=== PATIENT | male | born 1995 | race Hispanic/Latino ===

== ENCOUNTER 2018-03-13 01:15 | Emergency (ER) | payer SELFPAY ==
[2018-03-13 01:20] VITALS: BP 135/77; PULSE 122; RESP 16; TEMP 36.7; O2SAT 96; BMI 25.4
--- NOTE | 2018-03-13 01:23 | RAD_ITS ---
STUDY: X-RAY - LEFT RADIUS AND ULNA REASON FOR EXAM: Male, 22 years old. Status post fall into a glass picture. Laceration to the medial aspect of the arm. EtOH. TECHNIQUE: 3 view(s) of the forearm. COMPARISON: None. FINDINGS: There is soft tissue emphysema, consistent with skin wound. As seen on lateral views, there is a 1.5 mm triangular calcification projecting posterior to the proximal shaft of the ulna. As seen on AP view, there are 2 mm, 1 mm, and 4.5 mm radiodensities overlying the forearm medial to the proximal ulna. Each of these might represent a foreign body. Normal visualized radius. Normal visualized ulna. RAD/Forearm 2 Views IMPRESSION: No demonstrated fracture, dislocation, or destructive osseous lesion. Tentative identification of 2 mm, 1 mm, and 4.5 mm faintly radiodense foreign bodies adjacent to the proximal ulnar shaft. Electronically Signed: Terell Arias MD at 2:23 EST , Service support ,
[2018-03-13 01:51] LABS: Hematocrit 45.2 % (40-54); Hemoglobin 15.8 g/dl (13.0-16.5); Mean Corpuscular Hgb 29.4 pg (27.0-32.0); Mean Corpuscular Volume 84.2 fL (80-94); Mean Platelet Vol. 9.7 fl (6.2-12.0); Platelet Count 245 K/mm3 (150-450); RBC Distribution Width SD 36.7 fl (35.1-43.9); Red Blood Count 5.37 M/mm3 (4.6-6.2); White Blood Count 6.2 K/mm3 (4.4-11.0)
[2018-03-13 01:56] LABS: Scan Indicated on CBC? Y/N NO
[2018-03-13] MEDS: Cefazolin 1 GM/50 ML BAG IV (02:06)
[2018-03-13 02:12] LABS: Anion Gap 13 (5-15); BUN 15 mg/dL (7-18); BUN/Creat Ratio 13.8 RATIO (10-20); Calcium,Total 8.2 mg/dL (8.5-10.1); Chloride 108 mmol/L (98-107); Creatinine, Serum 1.09 mg/dL (0.70-1.30); EST Glomerular Filtration Rate 88 mL/min (>60); Est Glom Filt Rate - Afr Amer 106 mL/min (>60); Glucose 109 mg/dL (74-106); Potassium 3.9 mmol/L (3.5-5.1); Sodium Level 142 mmol/L (136-145)
--- NOTE | 2018-03-13 03:30 | ED.DCSUM_ITS ---
History of Present Illness Chief Complaint: Laceration Informant: Patient, Friend Onset: Today - JPTA Context: Sudden Onset Timing: Continuous Quality: sore Location: left forearm Current Severity: Mild Maximum Severity: Mild Worsened by: palpation Relieved by: nothing Associated Symptoms: bleeding/laceration Narrative: Patient was drinking heavily tonight, and subsequently knocked a framed picture off of the wall, he fell, the glass broke on the ground and he fell against the glass sustaining a laceration to his left upper extremity. Lots of bleeding. No syncope or other symptoms. The patient really is denying much pain unless you palpate it. He denies any numbness or tingling. Last tetanus shot was 7-8 years ago. Immunizations were performed as a child. Past Medical History - Allergies and Home Meds Allergies/Adverse Reactions: Allergies No Known Allergies Allergy (Verified 03/13/18 01:23) Primary Care Physician: Care Physician,No Primary [Primary Care Provider] - Past Medical History: None Smoking Status: Never smoker Alcohol: Occasional Review of Systems Gastrointestinal: Denies: Nausea, Vomiting Musculoskeletal: Reports: Extremity Pain Skin: Reports: Wounds Neurological: Denies: Headache, Weakness, Parasthesia, Numbness Physical Exam Vital Signs/Narrative: Vital Signs Temp Pulse Resp BP Pulse Ox 03/13/18 01:20 98.0 F 122 H 16 135/77 H 96 Inital Vital Signs reviewed: Yes General: Well nourished, Well developed, - - Intoxicated, cooperative, keenly alert. Head: Normocephalic, Atraumatic Eyes: Perrl, EOMI Neck: Supple, - - FROM Respiratory: No distress, Chest nontender Abdomen: Soft, Nontender, Nondistended Extremities: No edema, Tenderness - at laceration left forearm. FROM, including elbow. T-shirt wrapped around arm just prox to elbow as tournaquet; 2+ radial pulse distally. brisk oozing of blood from laceration, nonpulsatile. Skin: Normal color, Trauma - 14 cm mostly linear deep laceration to left ulnar proximal forearm, to elbow/olecranon but lateral to it. no bone is visible in wound, but olecranon is palpable just below surface of visible SQ soft tissues. Edge of olecranon bursa is visible, does not appear to be disturbed otherwise. no arteries, nerves visible. Neurological: Alert, Oriented x3, Cranial nerves II-XII grossly intact, Normal Strength, Normal Sensation, Normal Gait Psychological: Normal affect Diagnostic/Tx/Re-eval Impressions Forearm X-Ray 03/13/18 01:23 IMPRESSION: No demonstrated fracture, dislocation, or destructive osseous lesion. Tentative identification of 2 mm, 1 mm, and 4.5 mm faintly radiodense foreign bodies adjacent to the proximal ulnar shaft. Electronically Signed: Terell Arias MD at 2:23 EST , Service support , 03/13/18 01:23 Forearm 2 Views [RAD] Stat Laboratory Results 03/13/18 03/13/18 03/13/18 01:34 01:34 01:34 WBC 6.2 RBC 5.37 Hgb 15.8 Hct 45.2 MCV 84.2 MCH 29.4 MCHC 35.0 RDW 12.0 RDW Differential 36.7 Plt Count 245 MPV 9.7 Sodium 142 Potassium 3.9 Chloride 108 H Carbon Dioxide 21.0 Anion Gap 13 BUN 15 Creatinine 1.09 Estim Creat Clear Calc 87.50 Est GFR (MDRD) Af Amer 106 Est GFR (MDRD) Non-Af 88 BUN/Creatinine Ratio 13.8 Glucose 109 H Calcium 8.2 L Blood Type O POSITIVE Antibody Screen NEGATIVE - Medical Decision Making Patient started complaining that he was having trouble feeling his arm distal to the tourniquet, so it was removed, and instead a nonstick bulky dressing with an Rolando wrap was placed to control bleeding until I was able to repair the wound, and after x-ray was seen, which showed no acute bony involvement. Bleeding was well controlled with local bandaging only. His sensation returned to normal distally. His blood counts look good, he was typed and screened but transfusion is not necessary. He had a lot of blood all over his pants and clothes, so I was certainly concerned about the possibility of significant blood loss. The wound was repaired, and afterward I reevaluated his neurovascular exam. It is normal. He has normal distal median, radial, ulnar nerve function, and a 2+/4 radial pulse. He has full range of motion of the elbow. He was given Ancef 1 g, I do not think we need to update his tetanus right now. I will prescribe him Keflex for prophylaxis, and advised that he follow-up with orthopedics for reevaluation, he is intoxicated and I want to make sure that his repeat examination is as it is now, which is fairly benign from an external viewpoint, but he had significant soft tissue involvement of this wound, involving at least the most superficial fascial plane, I was able to see some forearm muscle but it did not appear to be lacerated. Mostly subcutaneous fat was visible, in addition to the olecranon bursa, which also did not appear to be traumatized otherwise. Most of this was discussed with the patient's friend who was translating in real-time at the bedside, I did also discuss partially with the patient in Swedish. Procedures - Lacerations Left forearm Length: 14 cm Depth: Fascia - Without involvement of the fascia or deeper layers to pull together Shape: Linear - With curves at the ends Prep: Sterile Conditions, Chlorhexadine Laceration repair: Irrigated - With approximately 300 cc of sterile water under pressure, Lidocaine with epi - 10 cc, Local Number of Sutures/[place]: 10 Suture Information: Horizontal, Mattress, - - 3-0 Comment: Skin edges everted nicely throughout laceration. Dressed with bacitracin. ED Disposition - Plan for ED Patient: Disposition: Home or Assisted Living Chief Complaint: Laceration Diagnosis: Laceration of left forearm Instructions: ED Laceration All Prescriptions: Cephalexin 500 mg PO TID 5 Days #15 cap Referrals: Gege Davis DO [STAFF PHYSICIAN] - 10-14 Days suture removal (Call for appointment to be seen in 2 weeks or a little longer for suture removal)
[2018-03-13 03:53] VITALS: RESP 18
--- OUTSIDE RECORDS SUMMARY | 2018-05-06 02:20 | XMS RPT_ITS ---
:1995 Author Organization [facility] Care Team Providers Name Role Phone Armand Jiemnez Attending Unavailable Primay Care Physicia, No Referring Unavailable CELENA WHITE Attending Unavailable Primay Care Physicia, No Primary Care Unavailable PROBLEMS PROBLEMS No Problem Records FoundPROCEDURES PROCEDURES No Procedure Records FoundRESULTS RESULTS ORTHOPEDIC VISIT Observed: 03/27/2018 Status: F Source: [place] REPORT 2:31 PM [facility] REPOSITORY [facility] [address] [place] [address] [address] [place] [address] OFFICE VISIT Date of Service: 03/27/18 MR#: [id number] Acct: [id number] Name: OMAR BRIONES Rep #: [id number] : 1995 Provider: REYMUNDO Jimenez Age/Sex: 22/M [place] [facility] [place] [place] Status: Signed Intake Vital Signs03/27/18 Body Mass Index (BMI) 25.4 Intake Visit Reasons: LEFT ARM Is patient in pain?: No Allergies No Known Allergies Allergy (Verified 03/13/18 01:23) PFSH Social History Smoking Status: Never smoker HPI LEFT ARM: Details: OMAR MILES is a 22 year old M here today for ED f/u on left elbow laceration. He has no signs of infection and denies any antibiotic use. He has no complaints of pain and the laceration is not covered today. There is a language barrier today but his significant other is able to translate small bits. ROS Musc Reports as per HPI Ortho Exam Left Elbow Skin/Wound: Yes healing Test: No Valgus Stress Test, No Varus Stress Test, No Pain w/ resist wrist ext, No Pain w/ resist wrist flex, No Thenar Atrophy, No Pain w/ resist 3rd dig ext, No Pain w/ resist pronation, No Ulnar Nerve Subluxation ROM: Yes Flexion 0-140, Extension 0, Supination 0-90 and Pronation 0-80 Sensation: Radial: I, Ulnar: I, Median: I Motor: Elbow Extension: 5, Elbow Flexion: 5, EPL: 5, FDP-2: 5, 1st Dorsal Interosseous: 5 ELBOW: At this time patient does have an evident healing laceration on the medial aspect of the posterior elbow. There is good approximation of the wound edges without any gapping noted. There is no localized inflammation, redness, or discharge from the laceration indicating infection. He has full range of motion of the elbow as well as full range of motion of the wrist and fingers. He is neurovascularly intact with normal sensation to normal touch and light touch on all the fingers. He has normal strength in the fingers and wrist. Assessment AND Plan Problems 1. Laceration of left elbow without complication, initial encounter S51.012A Plan Today in the office patient does have an evident healing laceration of the left posterior medial elbow. There are no signs of infection noted at the laceration site. He has normal range of motion, strength, and sensation throughout the entire upper extremity. The location of the laceration was very close in proximity to where the ulnar nerve would be and therefore is the likely reason for rechecking at our office today. There does not appear to be any indications of ulnar nerve involvement at this time. Patient has not been taking his antibiotics which I definitely reinforced that he needs to start taking them and finish the prescription given. We discussed the signs and symptoms to monitor for that would indicate infections which include increasing pain, swelling, redness, and/or discharge from the laceration. Also need to continue to monitor for any decrease in sensation of the fingers as well as decreased movement of the fingers wrist and/or elbow. At this time we have placed some Steri-Strips across the laceration just for a little protection. He can shower normally just pat it dry afterwards. No soaking of the lesion yet. he can follow-up as needed This note was generated with Boxxet software. It may contain incorrect words, spelling, and punctuation that were not noted in checking the note before signing. Coding Level of Care Code Off vis,new,level 3 Diagnoses Laceration of left elbow without complication, initial encounter S51.012A Encounter type: initial encounter 03/27/18 1431 <Electronically signed by Armand DWYER> Date Armand DWYER Cosigner Signature: Date (if applicable) CC: EMERGENCY DEPARTMENT Observed: 03/13/2018 Status: F Source: [place] SUMMARY 3:36 AM [facility] REPOSITORY [facility] Medical Records Department [address] [place] [address] Emergency Department Summary 03/13/18 0324 MR#: [id number] Acct: [id number] Name: OMAR BRIONES Rep #: [id number] : 1995 22 From: Celena White MD PCP: Care Physician, No Primary Status: REG ER History of Present Illness Chief Complaint: Laceration Informant: Patient, Friend Onset: Today - JPTA Context: Sudden Onset Timing: Continuous Quality: sore Location: left forearm Current Severity: Mild Maximum Severity: Mild Worsened by: palpation Relieved by: nothing Associated Symptoms: bleeding/laceration Narrative: Patient was drinking heavily tonight, and subsequently knocked a framed picture off of the wall, he fell, the glass broke on the ground and he fell against the glass sustaining a laceration to his left upper extremity. Lots of bleeding. No syncope or other symptoms. The patient really is denying much pain unless you palpate it. He denies any numbness or tingling. Last tetanus shot was 7-8 years ago. Immunizations were performed as a child. Past Medical History - Allergies and Home Meds Allergies/Adverse Reactions: Allergies No Known Allergies Allergy (Verified 03/13/18 01:23) Primary Care Physician: Care Physician,No Primary [Primary Care Provider] - Past Medical History: None Smoking Status: Never smoker Alcohol: Occasional Review of Systems Gastrointestinal: Denies: Nausea, Vomiting Musculoskeletal: Reports: Extremity Pain Skin: Reports: Wounds Neurological: Denies: Headache, Weakness, Parasthesia, Numbness Physical Exam Vital Signs/Narrative: Vital Signs 03/13/18 01:20 98.0 F 122 H 16 135/77 H 96 Inital Vital Signs reviewed: Yes General: Well nourished, Well developed, - - Intoxicated, cooperative, keenly alert. Head: Normocephalic, Atraumatic Eyes: Perrl, EOMI Neck: Supple, - - FROM Respiratory: No distress, Chest nontender Abdomen: Soft, Nontender, Nondistended Extremities: No edema, Tenderness - at laceration left forearm. FROM, including elbow. T-shirt wrapped around arm just prox to elbow as tournaquet; 2+ radial pulse distally. brisk oozing of blood from laceration, nonpulsatile. Skin: Normal color, Trauma - 14 cm mostly linear deep laceration to left ulnar proximal forearm, to elbow/olecranon but lateral to it. no bone is visible in wound, but olecranon is palpable just below surface of visible SQ soft tissues. Edge of olecranon bursa is visible, does not appear to be disturbed otherwise. no arteries, nerves visible. Neurological: Alert, Oriented x3, Cranial nerves II-XII grossly intact, Normal Strength, Normal Sensation, Normal Gait Psychological: Normal affect Diagnostic/Tx/Re-eval Impressions Forearm X-Ray 03/13/18 01:23 IMPRESSION: No demonstrated fracture, dislocation, or destructive osseous lesion. Tentative identification of 2 mm, 1 mm, and 4.5 mm faintly radiodense foreign bodies adjacent to the proximal ulnar shaft. Electronically Signed: Terell Arias MD at 2:23 EST , Service support , 03/13/18 01:23 Forearm 2 Views [RAD] Stat Laboratory Results WBC 6.2 RBC 5.37 Hgb 15.8 Hct 45.2 MCV 84.2 MCH 29.4 MCHC 35.0 RDW 12.0 RDW Differential 36.7 - Medical Decision Making Patient started complaining that he was having trouble feeling his arm distal to the tourniquet, so it was removed, and instead a nonstick bulky dressing with an Rolando wrap was placed to control bleeding until I was able to repair the wound, and after x-ray was seen, which showed no acute bony involvement. Bleeding was well controlled with local bandaging only. His sensation returned to normal distally. His blood counts look good, he was typed and screened but transfusion is not necessary. He had a lot of blood all over his pants and clothes, so I was certainly concerned about the possibility of significant blood loss. The wound was repaired, and afterward I reevaluated his neurovascular exam. It is normal. He has normal distal median, radial, ulnar nerve function, and a 2+/4 radial pulse. He has full range of motion of the elbow. He was given Ancef 1 g, I do not think we need to update his tetanus right now. I will prescribe him Keflex for prophylaxis, and advised that he follow-up with orthopedics for reevaluation, he is intoxicated and I want to make sure that his repeat examination is as it is now, which is fairly benign from an external viewpoint, but he had significant soft tissue involvement of this wound, involving at least the most superficial fascial plane, I was able to see some forearm muscle but it did not appear to be lacerated. Mostly subcutaneous fat was visible, in addition to the olecranon bursa, which also did not appear to be traumatized otherwise. Most of this was discussed with the patient's friend who was translating in real-time at the bedside, I did also discuss partially with the patient in Telugu. Procedures - Lacerations Left forearm Length: 14 cm Depth: Fascia - Without involvement of the fascia or deeper layers to pull together Shape: Linear - With curves at the ends Prep: Sterile Conditions, Chlorhexadine Laceration repair: Irrigated - With approximately 300 cc of sterile water under pressure, Lidocaine with epi - 10 cc, Local Number of Sutures/[place]: 10 Suture Information: Horizontal, Mattress, - - 3-0 Comment: Skin edges everted nicely throughout laceration. Dressed with bacitracin. ED Disposition - Plan for ED Patient: Disposition: Home or Assisted Living Chief Complaint: Laceration Diagnosis: Laceration of left forearm Instructions: ED Laceration All Prescriptions: Cephalexin 500 mg PO TID 5 Days #15 cap Referrals: Gege Davis DO [STAFF PHYSICIAN] - 10-14 Days suture removal (Call for appointment to be seen in 2 weeks or a little longer for suture removal) What to do if you have Problems For any increased pain, shortness of breath, bleeding, nausea or vomiting, chest pain, or any unexpected problems, contact your Primary Care Provider. Call [facility] ([phone]) or report to the closest Emergency Room. Call 911 if necessary. 03/13/18 0336 <Electronically signed by Celena White MD> Date Celena White MD Cosigner Signature (If Indicated): Date CC: No Primary Care Physician CBC-COMPLETE BLOOD CNT Collected: 03/13/2018 Status: F Source: [place] NO DIFF 1:34 AM [facility] REPOSITORY TYPE CODE TESTS RESULT OUT OF RANGE REFERENCE UNITS LAB L100.1000 4.4-11.0 K/mm3 Normal WBC 6.2 LAB L100.1200 4.6-6.2 M/mm3 Normal RBC 5.37 LAB L100.1300 13.0-16.5 g/dl Normal HGB 15.8 LAB L100.1400 40-54 % Normal HCT 45.2 LAB L100.1500 80-94 fL Normal MCV 84.2 LAB L100.1600 27.0-32.0 pg Normal MCH 29.4 LAB L100.1700 32-36 g/gl Normal MCHC 35.0 LAB L100.1810 11.6-14.6 % Normal RDW CV 12.0 LAB L100.1820 35.1-43.9 fl Normal RDW SD 36.7 LAB L100.1900 150-450 K/mm3 Normal PLT 245 LAB L100.2000 6.2-12.0 fl Normal MPV 9.7 Performed By: #### L100.0500 #### [facility] [address] [place], [address] BASIC METABOLIC Collected: 03/13/2018 Status: F Source: JENNIFER PROFILE (BMP) 1:34 AM [facility] REPOSITORY TYPE CODE TESTS RESULT OUT OF RANGE REFERENCE UNITS LAB L501.0100 74-106 mg/dL High GLU 109 Result Comment: Fasting Glucose result from 100 to 125 mg/dL suggests IMPAIRED HOMEOSTASIS per A.D.A. criteria. Please note revised GLUCOSE reference range effective 2017. LAB L501.1000 7-18 mg/dL Normal BUN 15 LAB L501.1100 0.70-1.30 mg/dL Normal CREAT,SERUM 1.09 Result Comment: The validity of the calculated GFR AND GFRAA in patients over 70 years has not been determined. Clinical correlation is essential. LAB L501.1110 >60 mL/min Normal EST GFR 88 Result Comment: Non- GFR Calc LAB L501.1115 >60 mL/min Normal EST GFR - AA 106 Result Comment: GFR Calc LAB L501.1255 ml/min Normal Estimated CRCL 87.50 LAB L501.1300 10-20 RATIO Normal BUN/CRE 13.8 LAB L501.2200 8.5-10 mg/dL Low .1 CA 8.2 LAB L501.5300 136-14 mmol/L Normal 5 NA 142 LAB L501.5600 3.5-5. mmol/L Normal 1 K 3.9 Result Comment: Moderate Hemolysis, Result may be falsely increased. LAB L501.5900 98-107 mmol/L High CL 108 LAB L501.6100 21.0-32.0 mmol/L Normal CO2 21.0 LAB L501.6200 5-15 Normal GAP 13 Performed By: #### L500.2500 #### [facility] [address] [place], [place], [address] TYPE AND SCREEN Collected: 03/13/2018 Status: F Source: JENNIFER 1:34 AM [facility] REPOSITORY Order Comment: Reason for Type AND Screen/Red Cells: TRAUMA TYPE CODE TESTS RESULT OUT OF RANGE REFERENCE UNITS LAB B10.0800 O Normal BLOOD TYPE GEL POSITIVE LAB B100.4000 Normal Antibody NEGATIVE Screen Performed By: #### B101.7450 #### [facility] [address] [place], [address] FOREARM 2 VIEWS Observed: 03/13/2018 Status: F Source: JENNIFER 1:24 AM [facility] REPOSITORY [facility] Imaging Services [address] [place] [address] Forearm 2 Views MR#: [id number] Acct: [id number] Name: OMAR BRIONES Rep #: [id number] : 1995 M 22 From: Terell Arias MD PCP: Care Physician, No Primary Status: REG ER Study: Forearm 2 Views Date of Exam: 03/13/18 Exam# [id number] Ordering Dr: Celena White MD STUDY: X-RAY - LEFT RADIUS AND ULNA REASON FOR EXAM: Male, 22 years old. Status post fall into a glass picture. Laceration to the medial aspect of the arm. EtOH. TECHNIQUE: 3 view(s) of the forearm. COMPARISON: None. FINDINGS: There is soft tissue emphysema, consistent with skin wound. As seen on lateral views, there is a 1.5 mm triangular calcification projecting posterior to the proximal shaft of the ulna. As seen on AP view, there are 2 mm, 1 mm, and 4.5 mm radiodensities overlying the forearm medial to the proximal ulna. Each of these might represent a foreign body. Normal visualized radius. Normal visualized ulna. RAD/Forearm 2 Views IMPRESSION: No demonstrated fracture, dislocation, or destructive osseous lesion. Tentative identification of 2 mm, 1 mm, and 4.5 mm faintly radiodense foreign bodies adjacent to the proximal ulnar shaft. Electronically Signed: Terell Arias MD at 2:23 EST , Service support , CC: No Primary Care Physician; CELENA WHITE MD Reporting Coordinator: Signed ALLERGIES ALLERGIES DATE TYPE / CODE NAME / CODE REACTION SEVERITY SOURCE 03/13/2018 Drug No Known Unknown [facility] Allergy/4160 Allergies/F00 Hospital 08583(SNOMED [id number](RXNOR Repository CT) M) ENCOUNTERS ENCOUNTERS ADMIT/DISCHARGE ACCOUNT ADMITTING ENCOUNTER LOCATION SOURCE NUMBER CLASS 03/27/2018/ [id number] Ambulatory BMSBuilding:[address] [place] [address] [place] Repository 03/13/2018/ [id number] Emergency Jennifer Jennifer [address] [facility] ing:ED Repository PAYERS PAYERS ENCOUNTER GUARANTOR PAYER SUBSCRIBER SOURCE 03/27/2018 OMAR SWAIN Primary NOT GIVENUNK Jennifer JD Insurance:SELF PAY [address] Number: Effective Repository [place] Date:2018-03-20 [phone]: () 03/13/2018 [facility]MAR JD [facility]SELF [place] [place], [place] Number: Effective Repository [phone]: [phone]) Date:2018-03-13 [phone] ()
== END 2018-03-13 03:54 | disposition home or self-care (01) ==
PROVIDERS: Emergency Provider Emergency Medicine
DX: S51.812A Laceration without foreign body of left forearm, initial encounter (principal); W25.XXXA Contact with sharp glass, initial encounter; Y93.9 Activity, unspecified; Y92.9 Unspecified place or not applicable; F10.129 Alcohol abuse with intoxication, unspecified; Y90.9 Presence of alcohol in blood, level not specified
CPT/HCPCS: 12005; 73090; 80048; 85027; 86850; 86900; 96365; 99283; J7030; A4216